=== PATIENT | male | born 1965 | race African-American/Black ===

== ENCOUNTER 2021-03-09 23:19 | Emergency (ER) | payer MEDICAID ==
[~2021-03-09] VITALS: Ht 177.8 cm; Wt 129.0 kg
[2021-03-10] MEDS ORDERED: ONDANSETRON HCL 4MG/2ML INJ IV ONE (01:30)
[2021-03-10] MEDS ORDERED: MORPHINE SULFATE 4 MG/ML CPJ (NOT FOR IM USE) IV ONE (01:30)
[2021-03-10 01:54] LABS: CHLORIDE 106 mEq/L (98-107)
[2021-03-10 02:05] LABS: CLARITY URINE CLEAR (CLEAR); COLOR URINE YELLOW (YELLOW); KETONES URINE 2+ (NEGATIVE); LEUKOCYTE ESTERASE URINE NEGATIVE (NEGATIVE); NITRITE URINE NEGATIVE (NEGATIVE); OCCULT BLOOD URINE NEGATIVE (NEGATIVE); PROTEIN URINE NEGATIVE (NEGATIVE)
[2021-03-10 03:15] LABS: BASOPHILS % 0.6 % (0.0-2.0); EOSINOPHILS % 0.2 % (0.0-5.0); HEMATOCRIT. 43.4 % (42.0-52.0); HEMOGLOBIN. 14.4 g/dL (14.0-18.0); LYMPHOCYTES % 12.3 % (20.0-50.0); MEAN CORPUSCULAR HEMOGLOBIN 25.1 pg (28.0-32.0); MEAN CORPUSCULAR VOLUME 75.4 fL (80.0-94.0); MEAN PLATELET VOLUME 9.9 fl (7.4-10.4); MONOCYTES % 6.2 % (2.0-8.0); NEUTROPHILS % 80.7 % (40.0-76.0); PLATELET 160 x1000/uL (130-400); RED BLOOD CELL COUNT 5.75 mill/uL (4.7-6.1); RED CELL DISTRIBUTION WIDTH 16.5 % (11.6-14.6)
[2021-03-10 04:27] VITALS: BP 153/84
[2021-03-10] MEDS ORDERED: HYDROCODONE/ACETAMINOPHEN 5/325MG TABLET PO ONE (04:30)
== END 2021-03-10 04:44 | disposition home or self-care (01) ==
LOC: ER 23:19
DX: N50.812 Left testicular pain (principal); L72.0 Epidermal cyst; E11.9 Type 2 diabetes mellitus without complications; I10 Essential (primary) hypertension; F20.9 Schizophrenia, unspecified; Z98.890 Other specified postprocedural states
CPT/HCPCS: 36415; 76870; 80053; 81003; 85025; 93976; 96374; 96375; 99284; J2270; J2405

== ENCOUNTER 2024-12-06 23:45 | Inpatient (IN) | payer MEDICAID ==
[~2024-12-06] VITALS: Ht 180.3 cm; Wt 108.0 kg
[~2024-12-06 23:45] MED LIST: AMLO10TA80 MT; TAMS-54 MT
[2024-12-07] VITALS (8 sets, daily range): BP systolic 126–151; BP diastolic 74–93; PULSE 79–96; RESP 18–20; TEMP 36.5–37.0296; O2SAT 98–100
[2024-12-07 00:48] LABS: BASOPHILS % 0.7 % (0.0-2.0); EOSINOPHILS % 0.0 % (0.0-5.0); HEMATOCRIT. 39.9 % (42.0-52.0); HEMOGLOBIN. 12.4 g/dL (14.0-18.0); LYMPHOCYTES % 8.7 % (20.0-50.0); MEAN PLATELET VOLUME 8.9 fl (7.4-10.4); MONOCYTES % 7.2 % (2.0-8.0); NEUTROPHILS % 83.4 % (40.0-76.0); PLATELET 460 x1000/uL (130-400); RED BLOOD CELL COUNT 6.25 mill/uL (4.7-6.1); RED CELL DISTRIBUTION WIDTH 20.6 % (11.6-14.6)
[2024-12-07 01:01] LABS: UREA NITROGEN BLOOD 12 mg/dL (9-23)
[2024-12-07 01:20] LABS: ADD RBC MORPHOLOGY YES
[2024-12-07 01:24] LABS: CREATININE 1.4 mg/dL (0.6-1.3)
[2024-12-07] MEDS ORDERED: ONDANSETRON HCL 4MG/2ML INJ IV ONE (01:30)
[2024-12-07] MEDS ORDERED: KETOROLAC 15MG/ML VIAL IV ONE (01:30)
[2024-12-07 02:23] LABS: ASPARTATE AMINOTRANSFERASE 20 IU/L (<34); BILIRUBIN DIRECT 0.2 mg/dL (<=3.0); BILIRUBIN TOTAL 0.6 mg/dL (0.1-1.0); PROTEIN TOTAL 8.6 g/dL (6.0-8.3)
[2024-12-07] MEDS: ONDANSETRON HCL 4MG/2ML INJ IV SCH (03:22)
[2024-12-07] MEDS: KETOROLAC 15MG/ML VIAL IV SCH (03:22)
[2024-12-07] MEDS: SODIUM CHLORIDE 0.9% 1,000 ML IV ONE (03:23)
[2024-12-07] MEDS: ONDANSETRON HCL 4MG/2ML INJ IV ONE (04:25)
[2024-12-07] MEDS: FENTANYL CITRATE/PF 50MCG/ML 2ML VIAL IV ONE (04:25)
[2024-12-07] MEDS ORDERED: IPRATROPIUM/ALBUTEROL 0.5-3(2.5)MG/3ML NEB HHN PRN (04:45)
[2024-12-07] MEDS ORDERED: DEXTROSE 50% WATER 50ML SYRINGE IV PRN ×2 (04:45→17:45)
[2024-12-07] MEDS ORDERED: ONDANSETRON HCL 4MG/2ML INJ IV PRN (04:45)
[2024-12-07] MEDS ORDERED: ACETAMINOPHEN 650MG SUPP PR PRN ×2 (04:45)
[2024-12-07] MEDS ORDERED: PIPERACILLIN/TAZOBACTAM 3.375 G in DEXTROSE 5% WATER 50 ML IV SCH (04:45)
[2024-12-07] MEDS: IOHEXOL-300 100 ML BOTTLE ONE (04:47)
[2024-12-07 04:55] LABS: PLATELET ESTIMATE SLIGHTLY INCREASED
[2024-12-07] MEDS ORDERED: LACTATED RINGERS 1,000 ML IV SCH (06:30)
[2024-12-07] MEDS: BLOOD SUGAR DIAGNOSTIC STRIP TEST SCH ×2 (07:40→18:27)
[2024-12-07] MEDS: PIPERACILLIN/TAZO 3.375G/50ML IV SCH (15:43)
[2024-12-07] MEDS ORDERED: NA PHOS,M-B/NA PHOS,DI-BA ENEMA 118ML PR NR (16:43)
[2024-12-07] MEDS: INSULIN LISPRO 100 UNITS/ML SUBCUT SCH (18:10)
[2024-12-07] MEDS: METOCLOPRAMIDE HCL 10MG/2ML VIAL IV NR (18:30)
[2024-12-07] MEDS: DEXT 5%/LACTATED RINGERS 1,000 ML IV SCH (18:30)
[2024-12-07] MEDS: NA PHOS,M-B/NA PHOS,DI-BA ENEMA 118ML PR NR (21:57)
[2024-12-08] VITALS: BP 135/79; PULSE 95; RESP 18; TEMP 36.7; O2SAT 98
[2024-12-08] MEDS ORDERED: ACETAMINOPHEN 325MG TABLET PO PRN (00:45)
[2024-12-08] MEDS: ACETAMINOPHEN 325MG TABLET PO PRN (00:50)
[2024-12-08 04:00] VITALS: BP 127/81; PULSE 82; RESP 20; TEMP 36.8; O2SAT 98
[2024-12-08 06:21] LABS: BASOPHILS % 0.5 % (0.0-2.0); EOSINOPHILS % 2.5 % (0.0-5.0); HEMATOCRIT. 35.4 % (42.0-52.0); HEMOGLOBIN. 11.3 g/dL (14.0-18.0); LYMPHOCYTES % 16.6 % (20.0-50.0); MEAN PLATELET VOLUME 9.1 fl (7.4-10.4); MONOCYTES % 14.2 % (2.0-8.0); NEUTROPHILS % 66.2 % (40.0-76.0); PLATELET 328 x1000/uL (130-400); RED BLOOD CELL COUNT 5.53 mill/uL (4.7-6.1); RED CELL DISTRIBUTION WIDTH 20.1 % (11.6-14.6)
[2024-12-08 06:31] LABS: ADD RBC MORPHOLOGY NO
[2024-12-08 06:32] LABS: CREATININE 1.1 mg/dL (0.6-1.3); TRIGLYCERIDE 100 mg/dL (0-150); UREA NITROGEN BLOOD 12 mg/dL (9-23)
[2024-12-08 06:33] LABS: LDL CHOLESTEROL 69 mg/dL (5-100)
[2024-12-08 08:00] VITALS: BP 147/87; PULSE 82; RESP 19; TEMP 36.7; O2SAT 99
[2024-12-08 12:00] VITALS: BP 138/78; PULSE 71; RESP 18; TEMP 36.6; O2SAT 100
[2024-12-08 16:00] VITALS: BP 128/79; PULSE 82; RESP 20; TEMP 36.9; O2SAT 98
[2024-12-08] MEDS: SORBITOL 70% SOLN 30ML PO NR (16:35)
[2024-12-08] MEDS: BISACODYL 5MG TABLET PO NR (16:36)
[2024-12-08] MEDS: METOCLOPRAMIDE HCL 10MG/2ML VIAL IV NR (16:37)
[2024-12-08 20:00] VITALS: BP 155/98; PULSE 84; RESP 20; TEMP 37.3; O2SAT 98
[2024-12-08] MEDS: METOCLOPRAMIDE HCL 10MG/2ML VIAL IV SCH (20:21)
[2024-12-08] MEDS: BISACODYL 5MG TABLET PO SCH (20:57)
[2024-12-08] MEDS: SORBITOL 70% SOLN 30ML PO SCH (20:57)
[2024-12-09] VITALS (8 sets, daily range): BP systolic 131–157; BP diastolic 84–98; PULSE 18–101; RESP 14–19; TEMP 36.1–37.1; O2SAT 97–99
[2024-12-09 06:01] LABS: INR 1.0
[2024-12-09 06:16] LABS: CREATININE 0.9 mg/dL (0.6-1.3)
[2024-12-09 06:17] LABS: UREA NITROGEN BLOOD 11 mg/dL (9-23)
[2024-12-09 06:18] LABS: ASPARTATE AMINOTRANSFERASE 13 IU/L (<34)
[2024-12-09 06:19] LABS: BILIRUBIN TOTAL 0.8 mg/dL (0.1-1.0); PHOSPHORUS 4.2 mg/dL (2.5-4.9); PROTEIN TOTAL 7.7 g/dL (6.0-8.3)
[2024-12-09 06:34] LABS: BASOPHILS % 0.6 % (0.0-2.0); EOSINOPHILS % 3.2 % (0.0-5.0); HEMATOCRIT. 34.9 % (42.0-52.0); HEMOGLOBIN. 11.3 g/dL (14.0-18.0); LYMPHOCYTES % 13.6 % (20.0-50.0); MEAN PLATELET VOLUME 9.0 fl (7.4-10.4); MONOCYTES % 10.1 % (2.0-8.0); NEUTROPHILS % 72.5 % (40.0-76.0); PLATELET 347 x1000/uL (130-400); RED BLOOD CELL COUNT 5.54 mill/uL (4.7-6.1); RED CELL DISTRIBUTION WIDTH 20.5 % (11.6-14.6)
[2024-12-09] MEDS: DEXT 5%/0.45% NACL 1000ML 1,000 ML IV SCH (10:16)
[2024-12-09] MEDS ORDERED: MIDAZOLAM HCL 2 MG/2 ML VIAL ONE (14:08)
[2024-12-09] MEDS ORDERED: PROPOFOL 200MG/20ML VIAL IV ONE ×4 (14:10→14:54)
[2024-12-09] MEDS ORDERED: SIMETHICONE 40 MG/0.6 ML 15ML ONE (14:15)
[2024-12-09] MEDS ORDERED: ONDANSETRON HCL 4MG/2ML INJ IV PRN (15:30)
[2024-12-10] VITALS: BP 146/74; PULSE 85; RESP 18; TEMP 36.3; O2SAT 97
[2024-12-10 04:00] VITALS: BP 145/97; PULSE 86; RESP 18; TEMP 36.4; O2SAT 98
[2024-12-10 05:09] LABS: ALPHA FETOPROTEIN TUMOR MARKER < 1.8 ng/mL (0.0-8.4); CA 19-9 4 U/mL (0-35); CARCINOEMBRYONIC AG - SEND OUT 32.7 ng/mL (0.0-4.7)
[2024-12-10 08:00] VITALS: BP 130/85; PULSE 83; TEMP 37.1; O2SAT 97
[2024-12-10 12:00] VITALS: BP 151/80; PULSE 76; RESP 16; TEMP 36.8; O2SAT 98
[2024-12-10 12:32] LABS: BASOPHILS % 0.5 % (0.0-2.0); EOSINOPHILS % 3.7 % (0.0-5.0); HEMATOCRIT. 34.9 % (42.0-52.0); HEMOGLOBIN. 11.1 g/dL (14.0-18.0); LYMPHOCYTES % 21.4 % (20.0-50.0); MEAN PLATELET VOLUME 8.8 fl (7.4-10.4); MONOCYTES % 12.3 % (2.0-8.0); NEUTROPHILS % 62.1 % (40.0-76.0); PLATELET 339 x1000/uL (130-400); RED BLOOD CELL COUNT 5.52 mill/uL (4.7-6.1); RED CELL DISTRIBUTION WIDTH 20.0 % (11.6-14.6)
[2024-12-10 12:39] LABS: ADD RBC MORPHOLOGY NO
[2024-12-10 12:50] LABS: CREATININE 1.0 mg/dL (0.6-1.3)
[2024-12-10 12:51] LABS: UREA NITROGEN BLOOD 12 mg/dL (9-23)
[2024-12-10 12:53] LABS: PHOSPHORUS 2.8 mg/dL (2.5-4.9)
[2024-12-10 16:00] VITALS: BP 124/78; PULSE 81; RESP 22; TEMP 36.9; O2SAT 81
[2024-12-10] MEDS: AMLODIPINE 10MG TABLET PO SCH (16:09)
[2024-12-10 20:00] VITALS: BP 149/85; PULSE 84; RESP 18; TEMP 36.6; O2SAT 96
[2024-12-11] VITALS: BP 161/91; PULSE 76; RESP 18; TEMP 36.6; O2SAT 76; O2SAT 98
[2024-12-11] MEDS: HYDRALAZINE 20MG/ML VIAL IV PRN (00:16)
[2024-12-11 03:58] VITALS: BP 153/103; PULSE 84; RESP 18; TEMP 36.4; O2SAT 99
[2024-12-11 08:00] VITALS: BP 141/95; PULSE 81; RESP 18; TEMP 36.5; O2SAT 98
[2024-12-11 12:00] VITALS: BP 138/93; PULSE 77; RESP 18; TEMP 36.4; O2SAT 98
[2024-12-11 13:19] LABS: BASOPHILS % 0.5 % (0.0-2.0); EOSINOPHILS % 4.0 % (0.0-5.0); HEMATOCRIT. 33.6 % (42.0-52.0); HEMOGLOBIN. 10.8 g/dL (14.0-18.0); LYMPHOCYTES % 25.2 % (20.0-50.0); MEAN PLATELET VOLUME 8.6 fl (7.4-10.4); MONOCYTES % 11.1 % (2.0-8.0); NEUTROPHILS % 59.2 % (40.0-76.0); PLATELET 333 x1000/uL (130-400); RED BLOOD CELL COUNT 5.26 mill/uL (4.7-6.1); RED CELL DISTRIBUTION WIDTH 19.7 % (11.6-14.6)
[2024-12-11 13:32] LABS: CREATININE 0.8 mg/dL (0.6-1.3); UREA NITROGEN BLOOD 7 mg/dL (9-23)
[2024-12-11] MEDS: PANTOPRAZOLE 40MG DR TABLET PO SCH (14:46)
[2024-12-11 16:00] VITALS: BP 127/73; PULSE 73; RESP 19; TEMP 36.8; O2SAT 99
[2024-12-11] MEDS ORDERED: HYDRALAZINE 10 MG in SODIUM CHLORIDE 0.9% 49.5 ML IV PRN (16:30)
[2024-12-11 20:00] VITALS: BP 135/81; PULSE 75; RESP 18; TEMP 36.7; O2SAT 100
[2024-12-12] VITALS: BP 131/76; PULSE 73; RESP 17; TEMP 36.7; O2SAT 100
[2024-12-12 04:00] VITALS: BP 144/95; PULSE 86; RESP 17; TEMP 36.4; O2SAT 99
[2024-12-12 06:33] LABS: PLATELET 286 x1000/uL (130-400); RED BLOOD CELL COUNT 5.11 mill/uL (4.7-6.1); RED CELL DISTRIBUTION WIDTH 20.0 % (11.6-14.6)
[2024-12-12 07:02] LABS: CREATININE 0.9 mg/dL (0.6-1.3); UREA NITROGEN BLOOD 5 mg/dL (9-23)
[2024-12-12 08:00] VITALS: BP 145/91; PULSE 89; RESP 17; TEMP 36.3; O2SAT 99
[2024-12-12 12:00] VITALS: BP 117/80; PULSE 75; RESP 18; TEMP 36.4; O2SAT 98
[2024-12-12 16:00] VITALS: BP 143/90; PULSE 83; RESP 17; TEMP 36.3; O2SAT 100
[2024-12-12 20:00] VITALS: BP 137/77; PULSE 77; RESP 20; TEMP 36.5; O2SAT 100
[2024-12-13] VITALS: BP 135/85; PULSE 75; RESP 20; TEMP 36.4; O2SAT 100
[2024-12-13 06:11] LABS: BASOPHILS % 0.6 % (0.0-2.0); EOSINOPHILS % 4.0 % (0.0-5.0); HEMATOCRIT. 37.5 % (42.0-52.0); HEMOGLOBIN. 11.6 g/dL (14.0-18.0); LYMPHOCYTES % 34.2 % (20.0-50.0); MEAN PLATELET VOLUME 9.1 fl (7.4-10.4); MONOCYTES % 9.9 % (2.0-8.0); NEUTROPHILS % 51.3 % (40.0-76.0); PLATELET 272 x1000/uL (130-400); RED BLOOD CELL COUNT 5.74 mill/uL (4.7-6.1); RED CELL DISTRIBUTION WIDTH 20.3 % (11.6-14.6)
[2024-12-13 06:15] LABS: CREATININE 0.8 mg/dL (0.6-1.3); UREA NITROGEN BLOOD < 5 mg/dL (9-23)
[2024-12-13 08:00] VITALS: BP 136/78; PULSE 83; RESP 18; O2SAT 100
[2024-12-13 12:00] VITALS: BP 125/79; PULSE 70; RESP 16; TEMP 36.3; O2SAT 97
[2024-12-13 16:00] VITALS: BP 141/96; PULSE 89; RESP 16; TEMP 36.4; O2SAT 100
[2024-12-13 20:00] VITALS: BP 148/72; PULSE 77; RESP 18; TEMP 37.1; O2SAT 99
[2024-12-14] VITALS: BP 135/84; PULSE 85; RESP 20; TEMP 36.7; O2SAT 97
[2024-12-14] MEDS ORDERED: MORPHINE SULFATE/PF 1 MG/ML 100 MG in BAG 1 EACH IV ONE (03:30)
[2024-12-14] MEDS: MORPHINE SULFATE 4 MG/ML INJ (FOR IV/IM USE) IV NR (03:52)
[2024-12-14 04:00] VITALS: BP 138/90; PULSE 91; RESP 20; TEMP 36.3; O2SAT 98
[2024-12-14 12:00] VITALS: BP 152/85; PULSE 97; RESP 17; TEMP 36.6; O2SAT 98
[2024-12-14 16:00] VITALS: BP 132/92; PULSE 96; RESP 18; TEMP 36.4; O2SAT 97
[2024-12-14 20:00] VITALS: BP 138/80; PULSE 92; RESP 17; TEMP 36.3; O2SAT 99
[2024-12-15 04:00] VITALS: BP 136/91; PULSE 86; RESP 18; TEMP 36.5; O2SAT 99
[2024-12-15 08:00] VITALS: BP 142/92; PULSE 86; RESP 16; TEMP 36.3; O2SAT 98
[2024-12-15 10:57] LABS: HEMATOCRIT. 36.8 % (42.0-52.0); HEMOGLOBIN. 11.8 g/dL (14.0-18.0); MEAN PLATELET VOLUME 8.8 fl (7.4-10.4); PLATELET 393 x1000/uL (130-400); RED BLOOD CELL COUNT 5.77 mill/uL (4.7-6.1); RED CELL DISTRIBUTION WIDTH 21.0 % (11.6-14.6)
[2024-12-15 11:07] LABS: CREATININE 1.0 mg/dL (0.6-1.3); UREA NITROGEN BLOOD 13 mg/dL (9-23)
[2024-12-15 11:09] LABS: PHOSPHORUS 3.9 mg/dL (2.5-4.9)
[2024-12-15 12:00] VITALS: BP 38/88; PULSE 82; RESP 16; TEMP 36.8; O2SAT 97
[2024-12-15 16:00] VITALS: BP 118/82; PULSE 89; RESP 18; TEMP 36.8; O2SAT 98
[2024-12-15 16:49] LABS: EOSINOPHILS % MANUAL 5.0 % (0.0-5.0); LYMPHOCYTES % MANUAL 37.0 % (20.0-50.0); MONOCYTES % MANUAL 10.0 % (2.0-8.0); NEUTROPHILS % MANUAL 48.0 % (45.0-75.0); PLATELET ESTIMATE NORMAL
[2024-12-15] MEDS: BISACODYL 5MG TABLET PO NR (17:57)
[2024-12-15 20:00] VITALS: BP 142/92; PULSE 88; RESP 18; TEMP 37.1; O2SAT 100
[2024-12-16 04:00] VITALS: BP 124/83; PULSE 90; RESP 18; TEMP 36.6; O2SAT 99
[2024-12-16] MEDS ORDERED: BUPIVACAINE HCL/PF 0.5% (5MG/ML) 10ML ONE (07:50)
[2024-12-16 08:00] VITALS: BP 135/94; PULSE 85; RESP 17; TEMP 37.2; O2SAT 98
[2024-12-16] MEDS ORDERED: ONDANSETRON HCL 4MG/2ML INJ IV PRN ×2 (08:00→10:45)
[2024-12-16] MEDS: DEXT 5%/0.45% NACL KCL 20MEQ/L 1,000 ML IV SCH (08:01)
[2024-12-16] MEDS: ENOXAPARIN 40MG/0.4ML SYR SUBCUT SCH (08:02)
[2024-12-16] MEDS ORDERED: SUCCINYLCHOLINE CHLORIDE 200MG/10ML IV ONE (08:37)
[2024-12-16] MEDS ORDERED: FENTANYL CITRATE/PF 50MCG/ML 5ML VIAL ONE (08:39)
[2024-12-16] MEDS ORDERED: PROPOFOL 200MG/20ML VIAL IV ONE (08:39)
[2024-12-16] MEDS ORDERED: MIDAZOLAM HCL 2 MG/2 ML VIAL ONE (08:40)
[2024-12-16] MEDS ORDERED: ROCURONIUM BROMIDE 10MG/ML VIAL 5ML IV ONE ×2 (08:50→09:03)
[2024-12-16] MEDS ORDERED: METOCLOPRAMIDE HCL 10MG/2ML VIAL ONE (09:13)
[2024-12-16] MEDS ORDERED: PHENYLEPHRINE HCL 10MG/ML 1ML IV ONE (09:29)
[2024-12-16] MEDS ORDERED: ONDANSETRON HCL 4MG/2ML INJ ONE (09:44)
[2024-12-16] MEDS ORDERED: BUPIVACAINE HCL/PF 0.25% (2.5MG/ML) 10ML ONE (09:59)
[2024-12-16] MEDS: FAMOTIDINE 20MG/2ML VIAL IV NR (10:45)
[2024-12-16] MEDS: HYDROMORPHONE HCL/PF 1MG/ML INJ IV PRN (10:54)
[2024-12-16] MEDS ORDERED: FENTANYL CITRATE/PF 50MCG/ML 2ML VIAL IV PRN (11:00)
[2024-12-16] MEDS: BUPIVACAINE HCL 0.5% 125 ML in ON-Q PM012 DRUG DELIV DEVICE 1 EA IR SCH (11:02)
[2024-12-16 12:00] VITALS: BP 158/87; PULSE 93; RESP 16; TEMP 36.9; O2SAT 99
[2024-12-16] MEDS: MORPHINE SULFATE 10 MG/ML INJ (NOT FOR IM USE) IV PRN (12:23)
[2024-12-16 16:00] VITALS: BP 142/82; PULSE 92; RESP 14; TEMP 37; O2SAT 97
[2024-12-16] MEDS: MORPHINE SULFATE 4 MG/ML INJ (FOR IV/IM USE) IM PRN (16:15)
[2024-12-16] MEDS: MORPHINE SULFATE 4 MG/ML INJ (FOR IV/IM USE) IM SCH (17:17)
[2024-12-16 20:00] VITALS: BP 130/73; PULSE 103; RESP 19; RESP 20; TEMP 37.2; O2SAT 97
[2024-12-17] VITALS: BP_SYST 152; BP_SYST 158; BP_DIAS 107; BP_DIAS 72; PULSE 102; PULSE 105; RESP 19; RESP 20; TEMP 36.4; TEMP 36.9; O2SAT 97; O2SAT 98
[2024-12-17 04:00] VITALS: BP 174/97; PULSE 100; RESP 18; TEMP 36.4; O2SAT 97
[2024-12-17 08:00] VITALS: BP 143/92; PULSE 84; RESP 16; TEMP 36.9; O2SAT 98
[2024-12-17] MEDS: MORPHINE SULFATE 4 MG/ML INJ (FOR IV/IM USE) IV NR (08:48)
[2024-12-17 08:54] LABS: BASOPHILS % 0.2 % (0.0-2.0); EOSINOPHILS % 0.1 % (0.0-5.0); HEMATOCRIT. 33.0 % (42.0-52.0); HEMOGLOBIN. 10.3 g/dL (14.0-18.0); LYMPHOCYTES % 7.4 % (20.0-50.0); MEAN PLATELET VOLUME 9.2 fl (7.4-10.4); MONOCYTES % 8.4 % (2.0-8.0); NEUTROPHILS % 83.9 % (40.0-76.0); PLATELET 328 x1000/uL (130-400); RED BLOOD CELL COUNT 5.16 mill/uL (4.7-6.1); RED CELL DISTRIBUTION WIDTH 20.4 % (11.6-14.6)
[2024-12-17 09:00] LABS: ADD RBC MORPHOLOGY NO
[2024-12-17 09:13] LABS: CREATININE 1.0 mg/dL (0.6-1.3)
[2024-12-17 09:14] LABS: UREA NITROGEN BLOOD 13 mg/dL (9-23)
[2024-12-17] MEDS ORDERED: MORPHINE SULFATE 10 MG/ML INJ (NOT FOR IM USE) IV PRN (11:00)
[2024-12-17] MEDS: MORPHINE SULFATE 4 MG/ML INJ (FOR IV/IM USE) IM PRN (11:25)
[2024-12-17 12:00] VITALS: BP 145/96; PULSE 81; RESP 15; TEMP 36.8; O2SAT 97
[2024-12-17 16:00] VITALS: BP 134/86; PULSE 93; RESP 17; TEMP 36.9; O2SAT 97
[2024-12-17 20:00] VITALS: BP 149/76; PULSE 82; RESP 18; TEMP 36.7; O2SAT 98
[2024-12-18] VITALS: BP 141/87; PULSE 98; RESP 18; TEMP 36.8; O2SAT 98
[2024-12-18 04:00] VITALS: BP 132/81; PULSE 100; RESP 20; TEMP 36.7; O2SAT 98
[2024-12-18] MEDS ORDERED: NALOXONE HCL 0.4MG/ML VIAL IV PRN (08:00)
[2024-12-18] MEDS: ENOXAPARIN 30MG/0.3ML SYR SUBCUT SCH (09:00)
[2024-12-18] MEDS: MORPHINE SULFATE 4 MG/ML INJ (FOR IV/IM USE) IV PRN (11:03)
[2024-12-18 12:00] VITALS: BP 148/82; PULSE 95; RESP 16; TEMP 37; O2SAT 95
[2024-12-18 16:00] VITALS: BP 149/87; PULSE 106; RESP 20; TEMP 36.5; O2SAT 96
[2024-12-18 20:00] VITALS: BP 159/89; PULSE 108; RESP 20; TEMP 38.3; O2SAT 98
[2024-12-18] MEDS: ACETAMINOPHEN 1000MG/100ML 100 ML IV NR (23:13)
[2024-12-19] VITALS: BP 148/83; PULSE 107; RESP 18; TEMP 36.6; O2SAT 98
[2024-12-19 04:00] VITALS: BP 145/96; PULSE 99; RESP 19; TEMP 36.6; O2SAT 98
[2024-12-19 08:00] VITALS: BP 145/86; PULSE 100; RESP 18; TEMP 36.1; O2SAT 96
[2024-12-19 16:00] VITALS: BP 148/100; PULSE 101; RESP 18; TEMP 36.7; O2SAT 97
[2024-12-19 20:00] VITALS: BP 146/79; PULSE 109; RESP 20; TEMP 36.7; O2SAT 94
[2024-12-20] VITALS: BP 154/81; PULSE 106; RESP 18; TEMP 36.6; O2SAT 98
[2024-12-20 04:00] VITALS: PULSE 115; RESP 21; TEMP 36.3; O2SAT 98
[2024-12-20 08:00] VITALS: BP 137/93; PULSE 106; RESP 20; TEMP 36.3; O2SAT 97
[2024-12-20 12:00] VITALS: BP 156/87; PULSE 106; RESP 20; TEMP 36.3; O2SAT 96
[2024-12-20 16:00] VITALS: BP 154/92; PULSE 99; RESP 18; TEMP 36.8; O2SAT 100
[2024-12-20 20:00] VITALS: BP 154/78; PULSE 83; RESP 16; TEMP 38.1; O2SAT 96
[2024-12-21] VITALS: BP 148/78; PULSE 90; RESP 18; TEMP 37.2; O2SAT 99
[2024-12-21] MEDS: MORPHINE SULFATE 4 MG/ML INJ (FOR IV/IM USE) IM PRN (02:18)
[2024-12-21 04:00] VITALS: BP 150/80; PULSE 89; RESP 16; TEMP 37.2; O2SAT 98
[2024-12-21 08:00] VITALS: BP 159/92; PULSE 102; RESP 16; TEMP 36.8; O2SAT 98
[2024-12-21 12:00] VITALS: BP 152/88; PULSE 98; RESP 18; TEMP 36.7; O2SAT 98
[2024-12-21 16:00] VITALS: BP 148/90; PULSE 98; RESP 18; TEMP 36.9; O2SAT 98
[2024-12-21 17:14] LABS: BASOPHILS % 0.5 % (0.0-2.0); EOSINOPHILS % 1.2 % (0.0-5.0); HEMATOCRIT. 30.5 % (42.0-52.0); HEMOGLOBIN. 9.8 g/dL (14.0-18.0); LYMPHOCYTES % 9.1 % (20.0-50.0); MEAN PLATELET VOLUME 9.2 fl (7.4-10.4); MONOCYTES % 10.3 % (2.0-8.0); NEUTROPHILS % 78.9 % (40.0-76.0); PLATELET 335 x1000/uL (130-400); RED BLOOD CELL COUNT 4.80 mill/uL (4.7-6.1); RED CELL DISTRIBUTION WIDTH 20.3 % (11.6-14.6)
[2024-12-21 17:34] LABS: CREATININE 0.8 mg/dL (0.6-1.3)
[2024-12-21 17:35] LABS: UREA NITROGEN BLOOD 9 mg/dL (9-23)
[2024-12-21 17:36] LABS: ASPARTATE AMINOTRANSFERASE 29 IU/L (<34)
[2024-12-21 17:37] LABS: BILIRUBIN TOTAL 0.7 mg/dL (0.1-1.0); PROTEIN TOTAL 7.6 g/dL (6.0-8.3)
[2024-12-21 20:00] VITALS: BP 140/80; PULSE 89; RESP 19; TEMP 36.7; O2SAT 98
[2024-12-21] MEDS: KETOROLAC 30MG/ML VIAL IV NR (20:38)
[2024-12-22] VITALS: BP 136/78; PULSE 90; RESP 17; TEMP 36.8; O2SAT 98
[2024-12-22 04:00] VITALS: BP 135/86; PULSE 82; RESP 20; TEMP 36.8; O2SAT 99
[2024-12-22] MEDS: KETOROLAC 30MG/ML VIAL IM NR (04:58)
[2024-12-22 08:00] VITALS: BP 110/67; PULSE 66; RESP 18; TEMP 36.6; O2SAT 97
[2024-12-22 12:00] VITALS: BP 130/70; PULSE 70; RESP 18; TEMP 36.7; O2SAT 98
[2024-12-22 16:00] VITALS: BP 125/80; PULSE 82; RESP 18; TEMP 36.4; O2SAT 98
[2024-12-22 20:00] VITALS: BP 142/80; PULSE 97; RESP 18; TEMP 36.6; O2SAT 98
[2024-12-22] MEDS ORDERED: KETOROLAC 15MG/ML VIAL IV PRN (23:15)
[2024-12-23] VITALS: BP 135/86; PULSE 94; RESP 17; TEMP 36.4; O2SAT 100
[2024-12-23] MEDS: KETOROLAC 30MG/ML VIAL IM NR (00:35)
[2024-12-23 04:00] VITALS: BP 130/79; PULSE 89; RESP 16; TEMP 36.5; O2SAT 97
[2024-12-23 08:00] VITALS: BP 121/79; PULSE 87; RESP 17; TEMP 37.2; O2SAT 98
[2024-12-23] MEDS: KETOROLAC 30MG/ML VIAL IM PRN (09:53)
[2024-12-23 12:00] VITALS: BP 133/79; PULSE 89; RESP 18; TEMP 36.9; O2SAT 100
[2024-12-23 16:00] VITALS: BP 127/64; PULSE 102; RESP 18; TEMP 36.8; O2SAT 96
[2024-12-23 20:00] VITALS: BP 127/69; PULSE 91; RESP 17; TEMP 36.8; O2SAT 98
[2024-12-24] VITALS (7 sets, daily range): BP systolic 117–141; BP diastolic 79–82; PULSE 66–137; RESP 15–18; TEMP 35.9–36.9; O2SAT 92–100
[2024-12-25] VITALS: BP 128/80; PULSE 91; RESP 18; TEMP 37.2; O2SAT 99
[2024-12-25 04:00] VITALS: BP 139/90; PULSE 90; RESP 19; TEMP 36.8; O2SAT 98
[2024-12-25 08:00] VITALS: BP 125/80; PULSE 89; RESP 20; TEMP 36.9; O2SAT 99
[2024-12-25 12:00] VITALS: BP 134/82; PULSE 87; RESP 18; TEMP 36.6; O2SAT 99
[2024-12-25] MEDS ORDERED: AMLO10TA80 PO (15:56)
[2024-12-25] MEDS ORDERED: SULF1TAB48 PO (15:56)
[2024-12-25 16:00] VITALS: BP 138/83; PULSE 87; RESP 16; TEMP 36.8; O2SAT 99
[2024-12-25] MEDS ORDERED: METF-414 PO (16:01)
[2024-12-25] MEDS: METFORMIN HCL 500MG TABLET PO SCH (17:23)
[2024-12-25] MEDS: SULFAMETHOXAZOLE/TRIMETHOPRIM 800/160MG TABLET PO SCH (17:23)
[2024-12-25 20:00] VITALS: BP 136/84; PULSE 93; RESP 18; TEMP 36.4; O2SAT 97
[2024-12-26] VITALS: BP 138/78; PULSE 88; RESP 16; TEMP 37.1; O2SAT 99
[2024-12-26 04:00] VITALS: BP 120/76; PULSE 86; RESP 18; TEMP 36.7; O2SAT 99
[2024-12-26 08:00] VITALS: BP 122/79; PULSE 88; RESP 20; TEMP 36.6; O2SAT 97
[2024-12-26 12:00] VITALS: BP 129/82; PULSE 87; RESP 20; TEMP 36.5; O2SAT 97
[2024-12-26 16:00] VITALS: BP 121/78; PULSE 85; RESP 20; TEMP 36.6; O2SAT 97
[2024-12-26] MEDS ORDERED: NALOXONE HCL 0.4MG/ML VIAL IV PRN (17:00)
[2024-12-26] MEDS: HYDROCODONE/ACETAMINOPHEN 5/325MG TABLET PO PRN (17:07)
[2024-12-26] MEDS ORDERED: DIATR MEGLU/DIATRIZOATE SOLN 30ML PO PRN (17:30)
[2024-12-26 20:00] VITALS: BP 131/77; PULSE 91; RESP 18; TEMP 37.6; O2SAT 98
[2024-12-27] VITALS: BP 141/89; PULSE 96; RESP 19; TEMP 39; O2SAT 97
[2024-12-27] MEDS: MORPHINE SULFATE 4 MG/ML INJ (FOR IV/IM USE) IV PRN (00:03)
[2024-12-27 04:00] VITALS: BP 129/83; PULSE 93; RESP 18; TEMP 36.8; O2SAT 99
[2024-12-27 08:00] VITALS: BP 128/73; PULSE 91; RESP 18; TEMP 37.8; O2SAT 98
[2024-12-27 11:28] LABS: BASOPHILS % 0.9 % (0.0-2.0); EOSINOPHILS % 3.6 % (0.0-5.0); HEMATOCRIT. 28.9 % (42.0-52.0); HEMOGLOBIN. 9.2 g/dL (14.0-18.0); LYMPHOCYTES % 22.5 % (20.0-50.0); MEAN PLATELET VOLUME 9.1 fl (7.4-10.4); MONOCYTES % 13.9 % (2.0-8.0); NEUTROPHILS % 59.1 % (40.0-76.0); PLATELET 403 x1000/uL (130-400); RED BLOOD CELL COUNT 4.64 mill/uL (4.7-6.1); RED CELL DISTRIBUTION WIDTH 20.6 % (11.6-14.6)
[2024-12-27 11:38] LABS: CREATININE 0.7 mg/dL (0.6-1.3); UREA NITROGEN BLOOD 6 mg/dL (9-23)
[2024-12-27 13:48] VITALS: BP 145/91; PULSE 83; RESP 19; TEMP 36.6; O2SAT 97
[2024-12-27 16:00] VITALS: BP 136/92; PULSE 82; RESP 18; TEMP 36.3
[2024-12-27 20:00] VITALS: BP 121/79; PULSE 90; RESP 18; TEMP 37.2
[2024-12-27] MEDS: METRONIDAZOLE 500MG TABLET PO SCH (21:25)
[2024-12-28] VITALS: BP 140/84; PULSE 92; RESP 20; TEMP 36.7
[2024-12-28 04:00] VITALS: BP 145/73; PULSE 94; RESP 18; TEMP 37.1
[2024-12-28] MEDS: DIATR MEGLU/DIATRIZOATE SOLN 30ML PO PRN (10:24)
[2024-12-29] VITALS: BP 139/72; PULSE 92; RESP 18; TEMP 36.3
[2024-12-29 04:00] VITALS: BP 131/90; PULSE 88; RESP 18; TEMP 36.4
[2024-12-29 08:00] VITALS: BP 138/82; PULSE 90; RESP 18; TEMP 37.2
[2024-12-29 12:00] VITALS: BP 134/81; PULSE 87; RESP 17; TEMP 36.7
[2024-12-29 16:00] VITALS: BP 133/72; PULSE 91; RESP 18; TEMP 36.7; O2SAT 98
[2024-12-29 20:00] VITALS: BP 132/89; PULSE 89; RESP 18; TEMP 36.4; O2SAT 97
[2024-12-30 08:00] VITALS: BP 135/80; PULSE 95; RESP 19; TEMP 36.9; O2SAT 99
[2024-12-30 12:00] VITALS: BP 123/86; PULSE 91; RESP 18; TEMP 36.8; O2SAT 98
[2024-12-30 16:00] VITALS: BP 109/62; PULSE 86; RESP 18; TEMP 36.4; O2SAT 98
[2024-12-30 20:00] VITALS: BP 129/72; PULSE 94; RESP 20; TEMP 36.7; O2SAT 99
[2024-12-31] VITALS (7 sets, daily range): BP systolic 127–141; BP diastolic 79–83; PULSE 88–97; RESP 18–20; TEMP 36.4–36.8; O2SAT 95–100
[2024-12-31] MEDS ORDERED: SULF1TAB48 PO (12:38)
[2024-12-31] MEDS ORDERED: METR-167 MT (12:38)
[2024-12-31 13:01] LABS: BASOPHILS % 0.7 % (0.0-2.0); EOSINOPHILS % 3.8 % (0.0-5.0); HEMATOCRIT. 28.2 % (42.0-52.0); HEMOGLOBIN. 9.4 g/dL (14.0-18.0); LYMPHOCYTES % 18.3 % (20.0-50.0); MEAN PLATELET VOLUME 8.8 fl (7.4-10.4); MONOCYTES % 9.3 % (2.0-8.0); NEUTROPHILS % 67.9 % (40.0-76.0); PLATELET 566 x1000/uL (130-400); RED BLOOD CELL COUNT 4.54 mill/uL (4.7-6.1); RED CELL DISTRIBUTION WIDTH 20.2 % (11.6-14.6)
[2024-12-31 13:30] LABS: CREATININE 0.7 mg/dL (0.6-1.3)
[2024-12-31 13:31] LABS: UREA NITROGEN BLOOD 8 mg/dL (9-23)
[2024-12-31 13:32] LABS: ASPARTATE AMINOTRANSFERASE 16 IU/L (<34)
[2024-12-31 13:33] LABS: BILIRUBIN DIRECT < 0.1 mg/dL (<=3.0); BILIRUBIN TOTAL < 0.2 mg/dL (0.1-1.0); PHOSPHORUS 3.9 mg/dL (2.5-4.9); PROTEIN TOTAL 6.2 g/dL (6.0-8.3)
[2024-12-31] MEDS: MAGNESIUM 2 G PREMIX 50 ML IV SCH (17:30)
[2024-12-31] MEDS: HYDROCODONE/ACETAMINOPHEN 5/325MG TABLET PO PRN (18:07)
[2025-01-01] VITALS: BP 130/74; PULSE 94; RESP 16; TEMP 36.7; O2SAT 98
[2025-01-01 04:00] VITALS: BP 122/70; PULSE 95; RESP 20; TEMP 36.7; O2SAT 99
[2025-01-01 08:00] VITALS: BP 128/79; PULSE 89; RESP 18; TEMP 36.7; O2SAT 100
[2025-01-01 12:00] VITALS: BP 144/85; PULSE 95; RESP 18; TEMP 36.6; O2SAT 99
[2025-01-01 16:00] VITALS: BP 149/83; PULSE 98; RESP 18; TEMP 36.3; O2SAT 100
[2025-01-01] MEDS ORDERED: NALOXONE HCL 0.4MG/ML VIAL IV PRN (16:45)
[2025-01-01] MEDS: HYDROCODONE/ACETAMINOPHEN 5/325MG TABLET PO PRN (19:25)
[2025-01-01 20:00] VITALS: BP 131/93; PULSE 91; RESP 19; TEMP 37.1; O2SAT 98
[2025-01-01] MEDS: GABAPENTIN 100MG CAPSULE PO SCH (21:34)
[2025-01-02] VITALS: BP 145/80; PULSE 86; RESP 19; TEMP 37.1; O2SAT 100
[2025-01-02 04:00] VITALS: BP 136/89; PULSE 95; RESP 18; TEMP 37; O2SAT 97
[2025-01-02 08:00] VITALS: BP 121/86; PULSE 97; RESP 18; TEMP 36.3; O2SAT 97
[2025-01-02 12:00] VITALS: BP 99/59; PULSE 87; RESP 19; TEMP 36.5; O2SAT 96
[2025-01-02 16:00] VITALS: BP 139/79; PULSE 90; RESP 18; TEMP 36.4; O2SAT 98
[2025-01-02 20:00] VITALS: BP 149/90; PULSE 95; RESP 17; TEMP 36.6; O2SAT 100
[2025-01-03] VITALS: BP 136/84; PULSE 87; RESP 19; TEMP 36.4; O2SAT 99
[2025-01-03 04:00] VITALS: BP 145/85; PULSE 87; RESP 16; TEMP 37.1; O2SAT 100
[2025-01-03 08:00] VITALS: BP 125/78; RESP 18; TEMP 36.7; O2SAT 98
[2025-01-03 12:00] VITALS: BP 159/70; RESP 18; TEMP 36.5; O2SAT 98
[2025-01-03 16:00] VITALS: BP 137/82; RESP 18; TEMP 37.2; O2SAT 97
[2025-01-03 20:00] VITALS: BP 150/71; PULSE 92; RESP 20; TEMP 36.6; O2SAT 97
[2025-01-03] MEDS: ENOXAPARIN 30MG/0.3ML SYR SUBCUT SCH (21:00)
[2025-01-04] VITALS: BP 139/85; PULSE 97; RESP 18; TEMP 36.6; O2SAT 99
[2025-01-04 04:00] VITALS: BP 156/68; PULSE 90; RESP 20; TEMP 36.6; O2SAT 98
[2025-01-04 08:00] VITALS: BP 150/84; PULSE 57; RESP 18; TEMP 36.1; O2SAT 98
[2025-01-04 12:00] VITALS: BP 126/85; PULSE 88; RESP 17; TEMP 36.4; O2SAT 99
[2025-01-04 20:00] VITALS: BP 145/85; PULSE 98; RESP 19; TEMP 36.6; O2SAT 98
[2025-01-05] VITALS: BP 139/78; PULSE 91; RESP 18; TEMP 36.4; O2SAT 97
[2025-01-05 08:00] VITALS: BP 137/90; PULSE 89; RESP 18; TEMP 37.2; O2SAT 98
[2025-01-05 12:00] VITALS: BP 138/96; PULSE 94; RESP 20; TEMP 36.3; O2SAT 98
[2025-01-05 16:00] VITALS: BP 153/95; PULSE 85; RESP 16; TEMP 37; O2SAT 95
[2025-01-06] VITALS: BP 137/86; PULSE 93; RESP 18; TEMP 36.3; O2SAT 93
[2025-01-06 04:00] VITALS: BP 139/87; PULSE 85; RESP 19; TEMP 36.3; O2SAT 85
[2025-01-06 08:00] VITALS: BP 176/78; PULSE 91; RESP 23; TEMP 36.7; O2SAT 98
[2025-01-06 12:00] VITALS: BP 136/89; PULSE 93; RESP 23; TEMP 36.6; O2SAT 97
[2025-01-06 16:00] VITALS: BP 145/92; PULSE 85; RESP 23; TEMP 36.7; O2SAT 98
[2025-01-06] MEDS ORDERED: NALOXONE HCL 0.4MG/ML VIAL IV PRN (19:00)
[2025-01-06 20:00] VITALS: BP 127/98; PULSE 88; RESP 20; TEMP 36.7; O2SAT 98
[2025-01-06] MEDS: ENOXAPARIN 30MG/0.3ML SYR SUBCUT SCH (21:00)
[2025-01-06] MEDS: HYDROCODONE/ACETAMINOPHEN 5/325MG TABLET PO PRN (21:20)
[2025-01-07] VITALS: BP 134/66; PULSE 98; RESP 18; TEMP 36.3; O2SAT 98
[2025-01-07 04:00] VITALS: BP 120/84; PULSE 91; RESP 18; TEMP 36.3; O2SAT 98
[2025-01-07 08:00] VITALS: BP 148/90; PULSE 82; RESP 19; TEMP 36.7; O2SAT 98
[2025-01-07 12:00] VITALS: BP 129/98; PULSE 106; RESP 20; TEMP 36.3; O2SAT 99
[2025-01-07 16:00] VITALS: BP 128/99; PULSE 104; RESP 20; TEMP 36.2; O2SAT 99
[2025-01-07 20:00] VITALS: BP 134/86; PULSE 84; RESP 18; TEMP 36.3; O2SAT 98
[2025-01-08] VITALS: BP 138/88; PULSE 78; RESP 18; TEMP 36.6; O2SAT 97
[2025-01-08 04:00] VITALS: BP 138/89; PULSE 73; RESP 18; TEMP 36.5; O2SAT 97
[2025-01-08 08:00] VITALS: BP 139/88; PULSE 101; RESP 18; TEMP 36.6; O2SAT 100
[2025-01-08 09:06] LABS: BASOPHILS % 1.2 % (0.0-2.0); EOSINOPHILS % 5.4 % (0.0-5.0); HEMATOCRIT. 34.4 % (42.0-52.0); HEMOGLOBIN. 10.8 g/dL (14.0-18.0); LYMPHOCYTES % 32.1 % (20.0-50.0); MEAN PLATELET VOLUME 8.8 fl (7.4-10.4); MONOCYTES % 5.9 % (2.0-8.0); NEUTROPHILS % 55.4 % (40.0-76.0); PLATELET 482 x1000/uL (130-400); RED BLOOD CELL COUNT 5.27 mill/uL (4.7-6.1); RED CELL DISTRIBUTION WIDTH 20.7 % (11.6-14.6)
[2025-01-08 09:26] LABS: ADD RBC MORPHOLOGY YES
[2025-01-08 09:34] LABS: CREATININE 0.9 mg/dL (0.6-1.3); UREA NITROGEN BLOOD 11 mg/dL (9-23)
[2025-01-08 12:00] VITALS: BP 133/90; PULSE 93; RESP 18; TEMP 36.5; O2SAT 98
[2025-01-08 16:00] VITALS: BP 132/74; PULSE 89; RESP 18; TEMP 36.7; O2SAT 98
[2025-01-08 17:16] LABS: PLATELET ESTIMATE NORMAL
[2025-01-08 20:00] VITALS: BP 136/88; PULSE 98; RESP 18; TEMP 36.1; O2SAT 98
[2025-01-09] VITALS: BP 145/87; PULSE 89; RESP 18; TEMP 36.5; O2SAT 97
[2025-01-09 04:00] VITALS: BP 137/90; PULSE 89; RESP 18; TEMP 36.5; O2SAT 99
[2025-01-09 08:00] VITALS: BP 153/96; PULSE 92; RESP 18; TEMP 36.7; O2SAT 98
[2025-01-09 12:00] VITALS: BP 138/88; PULSE 96; RESP 18; TEMP 36.7; O2SAT 98
[2025-01-09 16:00] VITALS: BP 165/87; PULSE 94; RESP 18; TEMP 36.6; O2SAT 97
[2025-01-09 20:00] VITALS: BP 137/88; PULSE 93; RESP 17; TEMP 37; O2SAT 99
[2025-01-10] VITALS: BP 150/89; PULSE 96; RESP 20; TEMP 36.5; O2SAT 100
[2025-01-10 04:00] VITALS: BP 149/86; PULSE 94; RESP 18; TEMP 36.3; O2SAT 100
[2025-01-10 08:00] VITALS: BP 132/87; PULSE 92; RESP 17; TEMP 36.6; O2SAT 98
[2025-01-10 12:18] VITALS: BP 144/86; PULSE 99
[2025-01-10 16:00] VITALS: BP 111/81; PULSE 91; RESP 18; TEMP 36.6; O2SAT 99
[2025-01-10 20:00] VITALS: BP 152/84; PULSE 96; RESP 18; TEMP 36.6; O2SAT 99
[2025-01-11] VITALS: BP 125/91; PULSE 107; RESP 18; TEMP 36.5; O2SAT 100
[2025-01-11 04:00] VITALS: BP 139/92; PULSE 93; RESP 19; TEMP 36.3; O2SAT 99
[2025-01-11 08:00] VITALS: BP 136/87; PULSE 95; RESP 17; TEMP 36.8; O2SAT 96
[2025-01-11 20:00] VITALS: BP 136/94; PULSE 87; RESP 20; TEMP 36.5; O2SAT 96
[2025-01-11] MEDS: HYDROCODONE/ACETAMINOPHEN 5/325MG TABLET PO PRN (20:47)
[2025-01-12] VITALS: BP 132/86; PULSE 89; RESP 18; TEMP 36.6; O2SAT 98
[2025-01-12 08:00] VITALS: BP 144/81; PULSE 94; RESP 18; TEMP 36.8; O2SAT 97
[2025-01-12 12:00] VITALS: BP 152/92; PULSE 91; RESP 18; TEMP 36.6; O2SAT 96
[2025-01-12] MEDS: POLYETHYLENE GLYCOL 3350 (17GM) 1 DOSE PACK PO SCH (15:50)
[2025-01-12 16:00] VITALS: BP 140/94; PULSE 107; RESP 16; TEMP 36.4; O2SAT 98
[2025-01-12 20:00] VITALS: BP 138/88; PULSE 86; RESP 16; TEMP 36.5; O2SAT 97
[2025-01-12] MEDS: SENNOSIDES/DOCUSATE SOD 8.6/50MG TABLET PO SCH (20:53)
[2025-01-13] VITALS: RESP 14
[2025-01-13 08:00] VITALS: BP 137/92; PULSE 85; RESP 18; TEMP 37.3; O2SAT 98
[2025-01-13 12:00] VITALS: BP 150/90; PULSE 93; RESP 18; TEMP 38.3; O2SAT 99
[2025-01-13 16:00] VITALS: BP 141/89; PULSE 99; RESP 18; TEMP 37.7; O2SAT 97
[2025-01-13 16:26] VITALS: BP 141/89; PULSE 99; RESP 18; TEMP 97.9
== END 2025-01-13 19:15 | DRG 231 ==
LOC: ER 23:45 → 7WST 12-07 04:04 → EDBEDREQ 12-07 04:55 → EDBEDREQTM 12-07 04:55 → EDBEDREQSVC 12-07 04:55 → ENRESERV 12-07 05:37 → 8EST 12-11 16:16 → 7EST 01-01 02:12
PROVIDERS: ADMIT Internal Medicine; ATTEND Internal Medicine
PROC: 0DBL8ZX Excision of Transverse Colon, Via Natural or Artificial Opening Endoscopic, Diagnostic (ICD-10-PCS; principal; 2024-12-13)
PROC: 0DBL0ZZ Excision of Transverse Colon, Open Approach (ICD-10-PCS; 2024-12-16)
DX: C18.4 Malignant neoplasm of transverse colon (principal); R65.11 Systemic inflammatory response syndrome (SIRS) of non-infectious origin with acute organ dysfunction; E87.20 Acidosis, unspecified; K56.609 Unspecified intestinal obstruction, unspecified as to partial versus complete obstruction; N17.9 Acute kidney failure, unspecified; E87.1 Hypo-osmolality and hyponatremia; C20 Malignant neoplasm of rectum; D64.9 Anemia, unspecified; K76.0 Fatty (change of) liver, not elsewhere classified; E66.9 Obesity, unspecified; I10 Essential (primary) hypertension; F32.A Depression, unspecified; E11.65 Type 2 diabetes mellitus with hyperglycemia; E86.0 Dehydration; K57.30 Diverticulosis of large intestine without perforation or abscess without bleeding; N40.0 Benign prostatic hyperplasia without lower urinary tract symptoms; E83.52 Hypercalcemia; E86.1 Hypovolemia; F17.210 Nicotine dependence, cigarettes, uncomplicated; D75.839 Thrombocytosis, unspecified; L30.9 Dermatitis, unspecified; T81.31XA Disruption of external operation (surgical) wound, not elsewhere classified, initial encounter; Y83.8 Other surgical procedures as the cause of abnormal reaction of the patient, or of later complication, without mention of misadventure at the time of the procedure; Z79.899 Other long term (current) drug therapy; Y92.89 Other specified places as the place of occurrence of the external cause; Z68.33 Body mass index [BMI] 33.0-33.9, adult
CPT/HCPCS: 36415; 71045; 74176; 74177; 76705; 80048; 80053; 80061; 80076; 82105; 82378; 82962; 83036; 83605; 83735; 84100; 84145; 84443; 85025; 85027; 86301; 87070; 87077; 87186; 88304; 88305; 88307; 93005; 93970; 97116; 97161; 97530; 99291; A4606; J0330; J0360; J0665; J1171; J1650; J1815; J1885; J2250; J2270; J2371; J2405; J2543; J2704; J2765; J3010; J3490; J7030; J7121; Q9967; J0131